=== PATIENT | male | born 1950 | race Caucasian/White ===

== ENCOUNTER 2025-02-10 14:36 | Inpatient (IN) | payer MEDICARE, SELFPAY ==
[2025-02-10] VITALS (9 sets, daily range): BP systolic 122–192; BP diastolic 50–97; BMI 15.8; BMI 15.1
--- NOTE | 2025-02-10 10:54 | ED.GENMED ---
History of Present Illness
General
Chief Complaint: Breathing Problem
Source: patient and spouse
Exam Limitations: none
Time Seen by Provider: 02/10/25 10:47
Nursing documentation reviewed up to this point in time: agreed with
History of Present Illness
History of Present Illness:
74-year-old male with no reported chronic medical issues (admittedly he says that he does not see a doctor), longtime smoker who presents to the emergency department with his for evaluation of multiple complaints chief among them worsening
shortness of breath. The patient reports that he has been having increasing shortness of breath�it sounds like he has some chronic dyspnea particular with exertion but that over the past week symptoms have significantly worsened. He has not had
any significant cough just mild chronic cough. Has not had any chest pain. He has chronic swelling in the legs he feels no worse than usual. He has not had fever or chills. He also complains of some recent urinary issues�he reports some
hematuria noted over the past few days as well as some mild dysuria and some bladder pressure. Denies any flank pain and, again, no fevers. Finally he reports recent increased fatigue/lethargy, notes that he has had very poor appetite
chronically but it seems to be getting worse. He has had increasing weight loss�patient says that this has been ongoing for 10+ years but it sounds like over the past few weeks to months weight loss has increased alongside his poor p.o. intake. He
is a longtime smoker but says that he has not smoked for 10 days and hopes to quit.
Review of Systems
Review of Systems
All Other Systems: ROS reviewed and negative except as documented in HPI and ROS
Constitutional: Reports fatigue; Denies fever or chills
EENT: Denies sore throat or runny nose
Respiratory: Reports cough and trouble breathing
Cardiac: Denies chest pain
ABD/GI: Reports abdominal pain (Bladder pressure); Denies nausea, vomiting or diarrhea
: Reports dysuria and bleeding; Denies frequency or flank pain
Musculoskeletal: Denies neck pain or back pain
Neurological: Denies dizzy or headache
Phy Exam
Physical Exam
Physical Exam:
General: Awake, alert, oriented x3; cachectic, mild respiratory distress
Head: Normocephalic, atraumatic
Eyes: Conjunctiva normal, EOMI
Throat: Airway intact, no JVD
Neck: Trachea midline, supple without meningismus
Lungs: Patient has tachypnea at rest with respiratory rate 22-24, scattered expiratory wheeze with diminished air movement throughout all lung becerril; pulse ox low normal 90% on room air
Heart: Tachycardia with regular rhythm, no murmurs, gallops, or rubs appreciated
Abd: Soft, non distended, nontender
Neuro: Grossly intact
Extremities: Patient has +1 pitting edema in the legs bilaterally; extremities are warm and well-perfused
Scores
Heart Failure Risk
Heart Failure Risk Score: Not Applicable
Heart Score for Chest Pain Patients
STEMI patient?: Not applicable
Withdrawal Assessment of Alcohol
Withdrawal Assessment Completed?: Not applicable
Course
Orders/Labs/Results
Orders:
Orders
02/10/25 10:48
Electrocardiogram (*1) Urgent
Reason for Study: Shortness of Breath
EKG- Treatment ONCE
CR Chest - 2 Views Urgent
Comment:
Reason For Exam: sob
02/10/25 10:57
Ipratropium/Albuterol Sulfate [Duoneb] 3 ml INH R NOW STA
02/10/25 11:10
COVID-19 Antigen Urgent
Source: Nasal Swab
Complete Blood Count/With Diff Urgent
Comprehensive Metabolic Panel Urgent
NT-proBNP Urgent
PTT Urgent
Prothrombin Time Urgent
Troponin I Urgent
Influenza A+B Rapid Molecular Urgent
GAMAL Source: Nasal Swab
Specimen Description:
02/10/25 11:29
Urinalysis Reflex To Culture Urgent
Date Specimen was Collected: 02/10/25
Time Specimen was Collected: 10:50
Urine Microscopic Reflex Cult Urgent
Urine Culture Urgent
GAMAL Source: U
Specimen Description:
Date Specimen was Collected: 02/10/25
Time Specimen was Collected: 10:50
02/10/25 12:07
CT Pe/abd/pel W Urgent
Comment:
Reason For Exam: shortness of breath, tachypnea; abd p + urine sxs
02/10/25 12:15
0.9% Sodium Chloride 1000 ml [Nss] 1,000 ml IV BOLUS
02/10/25 13:04
Bladder Scan- Treatment ONCE
02/10/25 13:24
MethylPREDNISolone PF [Solu-Medrol Pf] 125 mg IV NOW STA
02/10/25 13:35
Iniguez Placement- Treatment ONCE
Reason for insertion: Acute Retention
Azithromycin 500 mg/250 ml [Zithromax Infusion] 500 mg in 250 ml IV NOW
CefTRIAXone [Rocephin] 1,000 mg IV NOW STA
02/10/25 14:00
UROLOGY CONSULT Urgent
Consulting Provider: Jose Angel Gray
Was physician already notified: Yes
Abnormal Lab Results
02/10/25 02/10/25
11:10 11:29
WBC 13.5 H 10^3/uL
(4.8-10.8)
RBC 4.69 L 10^6/uL
(4.70-6.10)
MCH 31.3 H pg
(27.0-31.0)
MPV 10.5 H fL
(7.4-10.4)
Absolute Neuts (auto) 11.9 H 10^3/uL
(1.4-6.5)
Absolute Lymphs (auto) 0.4 L 10^3/uL
(1.2-3.4)
Absolute Monos (auto) 1.1 H 10^3/uL
(0.1-0.6)
Neutrophils % 88.5 H %
(42.2-75.2)
Lymphocytes % 3.0 L %
(20.5-51.1)
APTT 36.7 H Sec
(23.4-35.0)
BUN 58 H mg/dl
(9-20)
Glucose 143 H mg/dl
(70-99)
Urine Ketones 1+ A
(Negative)
Ur Occult Blood Reflex 4+ A
(Negative)
Leukocyte Esterase Rfl 3+ A
(Negative)
Urine RBC >100 A /HPF
(0-2)
Urine Bacteria (Reflex) Many A
(Negative)
Urine Albumin (Reflex) 3+ A
(Neg - Trace)
02/10/25 11:10
02/10/25 11:10
Vital Signs
Initial and Last Documented VS:
Initial Vital Signs
Temp Pulse Resp BP Pulse Ox
36.9 C 73 20 174/76 90
02/10/25 10:19 02/10/25 10:19 02/10/25 10:19 02/10/25 10:19 02/10/25 10:19
Last Documented Vital Signs
Temp Pulse Resp BP Pulse Ox
36.9 C 93 18 162/91 96
02/10/25 10:19 02/10/25 13:30 02/10/25 13:30 02/10/25 13:29 02/10/25 13:30
MDM/Problems Addressed
Differential Diagnosis Includes:
Dyspnea: COPD/bronchitis, pneumonia, pneumothorax, pulmonary embolism, congestive heart failure/pulmonary edema, ACS, anemia
Urinary symptoms: UTI, bladder cancer, kidney stone
Fatigue/weight loss/anorexia: Wide differential includes but not limited to�COPD, anemia, renal dysfunction/electrolyte derangement, infection (UTI/pneumonia), etc
MDM/Problems Addressed:
74-year-old male with no known chronic medical issues but heavy smoking history who has not not really had outpatient medical care presents to the ER with his for multiple complaints chief among them increasing shortness of breath. He is
hypertensive and tachypneic with low normal pulse ox here and tachycardia during my assessment. Physical exam is as above. Plan to place an IV send labs including CBC and a CMP, proBNP, troponin. Check urinalysis. Will check EKG and a chest
x-ray. Will treat with a DuoNeb with long smoking history and small amount of wheezing noted on exam. Will monitor very closely reassess after the above.
Labs reviewed: CBC shows leukocytosis to 13.5; no thrombocytopenia. Chemistry shows elevated BUN, acceptable creatinine, random glucose 143. LFTs unremarkable. Troponin negative x 1, proBNP marginal. His urinalysis is positive for blood and
leukocyte esterase but no nitrites, microscopic analysis pending. His COVID and flu swabs were negative. Chest x-ray shows hyperinflation of the lungs consistent with likely COPD but no pneumonia or pneumothorax. His EKG showed a sinus rhythm.
He remains tachypneic, he did have some wheezing but minimal. He has low normal pulse ox. Will check CT chest to rule out PE; given his hematuria and abdominal pain, weight loss we will also check abdomen/pelvis CT. Reassess after the above.
CT reviewed: No pulmonary embolism but severe emphysematous changes. Patient also has bilateral right greater than left pneumonia. He has CAD noted on CT chest. CT abdomen shows severely distended bladder with multiple bladder stones as well as
irregular and enlarged prostate concerning for adenocarcinoma. He does have large postvoid residual on bladder scan at bedside will place Iniguez catheter for acute urinary retention secondary to above. Will plan to treat with antibiotics as well as
steroids�suspect pneumonia with element of COPD flare. Will admit for continued management of these multiple new and acute medical issues. Discussed case with hospitalist for admission.
Iniguez catheter placed, patient having gross hematuria�initially quite dense but no significant clots, urine starting to lighten up. Will continue to monitor and may need CBI if it does not continue to improve. Discussed case with urology for
consultation.
Chronic conditions affecting care:
Smoking history
Acute Exacerbation and/or Progression of Chronic Illness:
Acute COPD exacerbation managed with steroids and nebs
Acute pneumonia managed with antibiotics
Acute urinary retention secondary to suspected prostate adenocarcinoma treated with Iniguez catheter
*Radiology
Radiology exam reviewed: preliminary read by ED provider and radiology read reviewed
*Pulse Oximetry
SaO2: 90
Patient hypoxic: no (90%)
*EKG
Interpreted by ED Provider?: Yes
Heart Rate: 74
Rate: normal
Rhythm: sinus and PVC's
[place]: normal axis
Interval: normal interval
QRS Pattern: normal QRS
Ischemia: no ischemia
*Critical Care Note
Total Time (30-74mins, 75-104mins- exclusive of procedures): Not Applicable
Data Reviewed
Source: patient, spouse and family
Patient Management
Social determinants of health affecting care: Poor outpatient follow-up
Discussion with other providers: Hospitalist (Discussed with hospitalist) and [facility] Bailiff (Discussed with urology)
Escalation/DeEscalation of care consider admission/obs:
Admission indicated
ED Attending Note
-
Portions of this chart may have been created with voice recognition software.� Occasional wrong word or��sound alike� substitutions may have occurred due to the inherent limitations of voice recognition software.
Discharge Plan
Departure
Patient Disposition: Admit
Date of Disposition: 02/10/25
Time of Disposition: 14:00
Admit to doctor: Martita
Presentation/result/management discussed w/ accepting MD/DO: Hospitalist
Discharge Problem:
Acute urinary retention, Prostate cancer, Pneumonia, COPD exacerbation
Referrals:
NONE,* [Family Provider, Internal Medicine]
Interventions
Interventions:
*Risk Screen - Suicide Last Done: 02/10/25 10:24
*General Assessment Last Done: 02/10/25 10:24
*Neglect/Abuse Screening Last Done: 02/10/25 11:15
*ED- Fall Risk Assessment Last Done: 02/10/25 11:15
*ED COVID-19 Vaccine History Last Done: 02/10/25 11:15
ED- Cardiac Assessment Last Done: 02/10/25 11:15
ED- Pulmonary Assessment Last Done: 02/10/25 11:16
Discharge Date and Time
Print Language: WALLISIAN
[2025-02-10] MEDS: DUONEB 3 ML INH ×3 (11:13→19:53)
[2025-02-10 11:24] LABS: Hematocrit 42.9 % (39.0-52.0); Hemoglobin 14.7 g/dL (13.0-18.0); Mean Corp Hgb Conc. 34.3 g/dL (33.0-37.0); Mean Corpuscular Volume 91.5 fL (80.0-94.0); Nucleated Red Blood Cells % 0 % (-); Platelet Count 266 10^3/uL (130-400); Red Cell Dist. Width 12.9 % (11.5-14.5)
[2025-02-10 11:36] LABS: ALT (SGPT) 21 U/L (0-50); AST (SGOT) 31 U/L (17-59); Albumin 4.4 g/dl (3.5-5.0); Alkaline Phosphatase 99 U/L (38-126); Blood Urea Nitrogen 58 mg/dl (9-20); Calcium 9.9 mg/dl (8.4-10.2); Carbon Dioxide 30 mmol/L (22-30); Chloride 98 mmol/L (98-107); Glucose 143 mg/dl (70-99); Potassium 4.7 mmol/L (3.5-5.1); Sodium 138 mmol/L (135-145); Total Protein 7.5 g/dl (6.3-8.2); eGFR > 60.00
[2025-02-10 11:39] LABS: APTT 36.7 Sec (23.4-35.0); INR 1.04; PT 13.9 Sec (11.4-14.6)
[2025-02-10 11:47] LABS: Troponin I 0.017 ng/ml
[2025-02-10 11:54] LABS: COVID-19 Antigen Negative (Negative)
[2025-02-10 12:11] LABS: Urine Character Cloudy (Clear)
[2025-02-10] MEDS: NSS 1000 IV (12:18)
[2025-02-10 12:33] LABS: Urine Red Blood Cell >100 /HPF (0-2); Urine Squamous Cell 0-2 /LPF (Few)
[2025-02-10] MEDS: ROCEPHIN 1000 MG IV (14:13)
[2025-02-10] MEDS: SOLU-MEDROL PF 125 MG IV (14:13)
[2025-02-10] MEDS: ZITHROMAX INFUSION 250 IV (14:13)
--- NOTE | 2025-02-10 14:20 | HPS.HSE ---
Family Physician
-
Family Physician: * NONE
Chief Complaint
-
shortness of breath
History of Present Illness
74-year-old male without reported medical issues, long-term smoker presenting for multiple complaints including shortness of breath. He has chronic shortness of breath with exertion but over the past week symptoms have gotten significantly worse.
Not much cough. Denies chest pain. He has chronic swelling in the legs which is not worse than usual for which he uses compression stocking. Denies fevers or chills.
He also complains of blood in the urine over the past few days and some mild pain with urination and bladder pressure. Denies any flank pain or fever. He has had increased fatigue and lethargy. He has had very poor appetite for a long time which
is getting worse. He has been losing weight ongoing for 10 years but over the past few weeks to months this has worsened.
His grandfather had prostate cancer
He has not smoked in 10 days. He smokes 8 to 10 cigarettes a day. Denies alcohol use.
Medical History
Past Medical History
Past Medical History: Reports None
Past Surgical History: Reports None
Social History
Tobacco: Smoker
Alcohol: None
Drug: None
Family History
Family History: Not pertinent
Allergies / Home Medications
Allergies reflects when Allergies were last updated in [facility].
Home Medications with original date entered in [facility]
Allergy/Medication List:
Allergies
Allergy/AdvReac Type Severity Reaction Status Date / Time
No Known Allergies Allergy Unverified 02/10/25 10:22
Review of Systems
-
History Source: Patient
A 12 point ROS was completed and negative except as noted: Yes
Constitutional: Reports No Symptoms
EENT: Reports No Symptoms
Respiratory: Reports See HPI
Cardiac: Reports No Symptoms
Abdomen/GI: Reports No Symptoms
: Reports See HPI
Musculoskeletal: Reports No Symptoms
Skin: Reports No Symptoms
Neurological: Reports No Symptoms
Endocrine: Reports No Symptoms
Hematologic/Lymphatic: Reports No Symptoms
Psych: Reports No Symptoms
Physical Exam
Vital Signs
Vital Signs
Temp Pulse Resp BP Pulse Ox
98.4 F 93 18 162/91 96
02/10/25 10:19 02/10/25 13:30 02/10/25 13:30 02/10/25 13:29 02/10/25 13:30
Physical Exam
General: Well Developed, Well Nourished and No Apparent Distress
HEENT: NormoCephalic, Moist mucous membranes and Atraumatic
Respiratory: Clear
Cardiac: S1/S2 and Regular Rhythm; No Murmur or Rub
GI: Soft, Non Tender, Non Distended and Normal Bowel Sounds; No Organomegaly
Rectal: Deferred by Provider
Musculoskeletal: No Clubbing, No Cyanosis and No Edema
Skin: No Rash
Neuro: Nonfocal/grossly intact
Laboratory Results
-
02/10/25 11:10
02/10/25 11:10
Laboratory Results
PT 13.9 Sec (11.4-14.6) 02/10/25 11:10
INR 1.04 02/10/25 11:10
APTT 36.7 Sec (23.4-35.0) H 02/10/25 11:10
Total Bilirubin 1.1 mg/dl (0.2-1.3) 02/10/25 11:10
AST 31 U/L (17-59) 02/10/25 11:10
ALT 21 U/L (0-50) 02/10/25 11:10
Alkaline Phosphatase 99 U/L (38-126) 02/10/25 11:10
Troponin I 0.017 ng/ml 02/10/25 11:10
Data Reviewed
-
Lab Data: Labs Reviewed by me
Old Records: Reviewed
Impression/Plan
-
IMPRESSION:
PLAN:
# Acute COPD exacerbation
- Chest x-ray shows severe bilateral lung hyperinflation
- DuoNebs every 6 hours
- Dexamethasone 4 mg every 12
# Mild right lower lobe pneumonia
-Leukocytosis
- Chest x-ray shows mild to moderate asymmetric opacity in the posterior basilar right lower lobe which is likely mild right lobe pneumonia
- Ceftriaxone/azithromycin
# Hematuria secondary to possible prostate malignancy
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
-Urinalysis not particularly suggestive of infection, urine culture
- CT abdomen pelvis shows severely distended urinary bladder, marked trabeculation of the urinary bladder wall suggesting chronic outlet obstruction, many calculi in the urinary bladder lumen, 2.7 cm irregular shaped hyperenhancement in the prostate
gland suggesting prostate adenocarcinoma obstructing the urinary bladder, moderate chronic bilateral hydroureteronephrosis,
- Iniguez catheter placed
- Urology consulted
# Smoker
- Nicotine patch
Full code
DVT prophylaxis�SCDs
Regular diet
--- NOTE | 2025-02-10 14:58 | CM ---
CM reviewed chart and met with pt bedside in ED. Pt lives with his in [facility], [address], has full bath and bedroom on first floor.
Independent in ADLs, personal care and ambulation at baseline. No DME.
Does not have prescription coverage.
No hx of VN or SNF
Does not have PCP
Pharmacy: [facility]
CM will continue to follow for any discharge planning needs.
[2025-02-10] MEDS: DECADRON 4 MG IV (23:08)
[2025-02-11 06:57] VITALS: BP 144/88
[2025-02-11] MEDS: DUONEB 3 ML INH ×4 (07:20→19:45)
[2025-02-11 07:57] LABS: Hematocrit 35.0 % (39.0-52.0); Hemoglobin 11.8 g/dL (13.0-18.0); Mean Corp Hgb Conc. 33.7 g/dL (33.0-37.0); Mean Corpuscular Volume 91.9 fL (80.0-94.0); Nucleated Red Blood Cells % 0 % (-); Platelet Count 246 10^3/uL (130-400); Red Cell Dist. Width 12.8 % (11.5-14.5)
--- NOTE | 2025-02-11 08:38 | W.PN.HOSP.TC ---
Addendum entered and electronically signed by Tess Craig MD 02/11/25 11:22:
Addendum
Add blood culture. Add Legionella urine antigen
End
Original Note:
Today's Communication/Plan
-
.
Assessment / Plan
Assessment / Plan
Physical Exam
General: No Apparent Distress. Cachexia noted
HEENT: Normocephalic, Moist mucous membranes and Atraumatic
Respiratory: very limited, no wheezes
Cardiac: S1/S2
GI: Soft, Non Tender, Non Distended and Normal Bowel Sounds.
Rectal: no bleeding
Musculoskeletal: No Clubbing, No Cyanosis and No Edema
Skin: No Rash
Neuro: Nonfocal/grossly intact
Psych: calm
A/P:
# Acute COPD exacerbation acute hypoxic respiratory failure with distress, requiring oxygen supplementation
CT showed severe bilateral upper lobe centrilobular emphysema/moderate right lower lobe pneumonia/mild left lower lobe pneumonia
- Chest x-ray shows severe bilateral lung hyperinflation
- DuoNeb every 6 hours
- Dexamethasone 4 mg every 12
Consult pulmonary. Pt did not know his pulmonary doctor, doubt he was following.
# Mild right lower lobe pneumonia
He denies shortness of breath or fever but seems poor historian
-Leukocytosis, noted and coming down
-Afebrile
- Ceftriaxone/azithromycin
# Hematuria secondary to possible prostate malignancy
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
-Urinalysis not particularly suggestive of infection but urine culture came back negative . Pt already on Abx for lung disease
- CT abdomen pelvis shows severely distended urinary bladder, marked trabeculation of the urinary bladder wall suggesting chronic outlet obstruction, many calculi in the urinary bladder lumen, 2.7 cm irregular shaped hyperenhancement in the prostate
gland suggesting prostate adenocarcinoma obstructing the urinary bladder, moderate chronic bilateral hydroureteronephrosis,
- Iniguez catheter placed
- Urology consulted
# Tobacco use/smoking
- Nicotine patch
# Severe protein caloric malnutrition. BMI 15. Suspect secondary to ongoing COPD
Significant muscle wasting
# Suspect untreated primary hypertension. Blood pressure seems to fluctuate between high and normal. Will start the patient on amlodipine and monitor
Full code
DVT prophylaxis�SCDs
Regular diet
Total time spent to see the patient, examine the patient, review data and lab result, discuss treatment plan with patient, nursing staff around 55 minutes
Anticipated Discharge: > 48 hours
Subjective/Interval History
-
Date of Service: February 11, 2025
No chest pain
No sob
Objective Data
-
Labs:
Laboratory Results
02/11/25
05:56
WBC 11.4 H
Hgb 11.8 L
Hct 35.0 L
Plt Count 246
Sodium Pending
Potassium Pending
Chloride Pending
Carbon Dioxide Pending
BUN Pending
Creatinine Pending
Glucose Pending
Calcium Pending
Total Bilirubin Pending
AST Pending
ALT Pending
Alkaline Phosphatase Pending
Vital Signs:
Vital Signs
Temp Pulse Resp BP Pulse Ox
98.5 F 70 14 122/50 92
02/10/25 23:08 02/11/25 07:22 02/11/25 07:22 02/10/25 23:08 02/11/25 07:22
I&O
02/10/25 02/11/25 02/12/25
06:59 06:59 06:59
Intake Total 660 / 660
Output Total 2574 / 257
Balance -1914 / -1914
[2025-02-11 08:57] LABS: ALT (SGPT) 23 U/L (0-50); AST (SGOT) 33 U/L (17-59); Albumin 3.4 g/dl (3.5-5.0); Alkaline Phosphatase 77 U/L (38-126); Blood Urea Nitrogen 44 mg/dl (9-20); Calcium 9.2 mg/dl (8.4-10.2); Carbon Dioxide 31 mmol/L (22-30); Chloride 103 mmol/L (98-107); Estimated Creatinine Clearance 68 ml/min; Glucose 127 mg/dl (70-99); Potassium 4.4 mmol/L (3.5-5.1); Sodium 139 mmol/L (135-145); Total Protein 5.9 g/dl (6.3-8.2); eGFR > 60.00
--- NOTE | 2025-02-11 10:30 | CONS.URO ---
Consultation
-
Date/Time Consultation Performed: 02/11/2025 1111
Requesting Provider: Kiara
Performing Provider: Isaac
Reason for Consultation: Bladder stones
Medical History
History of Present Illness
Admitted via ED for SOB.
Admission note, excerpt: 'He also complains of blood in the urine over the past few days and some mild pain with urination and bladder pressure. Denies any flank pain or fever. He has had increased fatigue and lethargy. He has had very poor
appetite for a long time which is getting worse. He has been losing weight ongoing for 10 years but over the past few weeks to months this has worsened.'
Allergies/Home Medications
Allergies
Allergy/AdvReac Type Severity Reaction Status Date / Time
No Known Allergies Allergy Unverified 02/10/25 10:22
Home Medications
�Medication �Instructions �Recorded �Confirmed �Type
multivitamin with minerals-folic 2 tab PO DAILY Supplement 02/10/25 02/10/25 History
acid 200 mcg chewable tablet
(Multivitamin Gummies)
Physical Exam
Vital Signs
Vital Signs
Temp Pulse Resp BP Pulse Ox
98.4 F 70 14 144/88 92
02/11/25 06:57 02/11/25 07:22 02/11/25 07:22 02/11/25 06:57 02/11/25 07:22
Lab / Testing Results
Laboratory Results
02/11/25 05:56
02/11/25 05:56
Physical Exam
thin male currently receiving respiratory tx
General: No Apparent Distress
Rectal: Other (indurated prostate)
Genito-urinary: Iniguez Catheter (with jimena urine and debris and flecks of blood)
Skin: Warm
Neuro: Awake
Psych: Calm
Assessment / Plan
-
Suspected Prostate Cancer
Chronic Bladder Outlet Obstruction causing Bladder Stones, Hematuria, Bilateral Hydroureteronephrosis
Rec: Iniguez
PSA
no indication for urgent surgical intervention
Data Reviewed
-
CT Scan: Image personally visualized and interpreted (1. SEVERE BILATERAL UPPER LOBE CENTRILOBULAR EMPHYSEMA. 2. MODERATE RIGHT LOWER LOBE PNEUMONIA. 3. Mild left lower lobe pneumonia. 4. Severe calcific atherosclerotic plaque in the
coronary arteries. ABDOMEN and PELVIS: 1. SEVERELY DISTENDED URINARY BLADDER with marked trabeculation of th)
--- NOTE | 2025-02-11 11:16 | CON.PUL ---
Consultation
Consultation Request
Date/Time Consultation Requested: 02/11/2025-8 AM
Date/Time Consultation Performed: 02/11/2025-8:30 AM
Requesting Provider: Hospitalist
Performing Provider: Dr. Palomo
Reason for Consultation: Shortness of breath
Medical History
-
Chief Complaint: Shortness of breath
History of Present Illness:
74-year-old smoking male who denies significant past medical history, however, clearly has underlying advanced COPD radiographically presented with shortness of breath, anorexia, and unintentional weight loss-pulmonary consulted for shortness of
breath 02/11/2025. The patient states that he has some dyspnea on exertion that has been progressive. He has never seen a instructor painting. He is not on any inhalers. He never been told he has COPD or asthma. He denies any current chest pain, chest
congestion, hemoptysis, productive cough, wheezing, abdominal pain, leg swelling or focal weakness.
Past Medical History
Past Medical History: None (Cigarette smoker. Denies previous history of CAD, COPD, lung disease, renal, gastrointestinal or neurologic disease)
Social History
Tobacco: Smoker ([id number] quit 2 weeks ago)
Alcohol: None
Drug: None
Occupational Exposures: No known asbestos exposure
Environmental Exposures: No known tuberculosis exposure
Family History
Family History: Reviewed & Not Pertinent
Allergies / Home Medications
Allergies
Allergy/AdvReac Type Severity Reaction Status Date / Time
No Known Allergies Allergy Unverified 02/10/25 10:22
Home Medications
�Medication �Instructions �Recorded �Confirmed �Last Taken �Type
multivitamin with minerals-folic 2 tab PO DAILY Supplement 02/10/25 02/10/25 02/09/25 History
acid 200 mcg chewable tablet
(Multivitamin Gummies)
Review of Systems
-
Unable to Obtain full review of systems at this time due to: Other (Per HPI)
Vitals / Labs / Diagnostic Testing
Vital Signs
Temp Pulse Resp BP Pulse Ox
98.4 F 72 15 144/88 92
02/11/25 06:57 02/11/25 11:09 02/11/25 11:09 02/11/25 06:57 02/11/25 07:22
Lab Data
02/11/25 05:56
02/11/25 05:56
Laboratory Results
02/10/25
11:10
PT 13.9
INR 1.04
APTT 36.7 H
Microbiology
02/10/25 11:29 Urine Urine Culture - Final
02/10/25 11:10 Nasal Swab Influenza Types A & B (SEGUNDO) - Final
Negative for Influenza A & B, NAAT
Negative results must be combined with clinical observations
and patient history.
Nucleic Acid Amplification test (NAAT)performed on the
[employer] platform.
Diagnostic Testing:
Physical Exam
-
Exam:
Thin gentleman in no apparent distress
HEENT-atraumatic, normocephalic, temporal wasting
Neck-supple, no JVD, no bruit
Heart-regular rate and rhythm-no murmurs, rubs or gallops
Chest with diminished breath sounds, prolonged expiratory time, no wheezes or crackles
Back without tenderness
Abdomen-soft, nontender, nondistended, no hepatosplenomegaly
Extremities-no cyanosis, clubbing, edema and good peripheral pulses
Integument-intact, no rashes, lesions or ecchymosis
Neurology-alert and oriented, nonfocal motor and sensory exam
Assessment
-
74-year-old smoking male who denies significant past medical history, however, clearly has underlying advanced COPD radiographically presented with shortness of breath, anorexia, and unintentional weight loss-pulmonary consulted for shortness of
breath 02/11/2025.
COPD-suspect advanced with acute exacerbation
Community-acquired pneumonia
Hematuria
Chronic bladder outlet obstruction/chronic bilateral hydroureteronephrosis
Prostate gland 2.7 cm irregular shaped hyperenhancement suggestive of prostate cancer
Severe protein calorie malnutrition
Hypertension
Mild leukocytosis
Mild normocytic anemia-hemoglobin 11.8
Mild hyperglycemia
Conditions present prior to admission:
Cigarette smoker.
Denies previous history of CAD, COPD, lung disease, renal, gastrointestinal or neurologic disease
Plan
Patient undoubtedly has advanced COPD with shortness of breath that has been progressive now presenting with acute exacerbation in addition to multiple other medical issues
Supplemental oxygen as needed
Assess discharge supplemental oxygen needs
Steroids-Decadron 4 mg IV every 12 hours
Nebulizers-DuoNebs 4 times daily
Mucolytic's if needed
Aspiration precautions
Check spirometry
Check VBG
Check cultures
Empiric antibiotics-ceftriaxone and azithromycin-finite course
Follow radiographically
Urology evaluation for hematuria and chronic bladder outlet obstruction with suspected prostate cancer
Monitor hemoglobin
Transfuse if needed
Monitor blood sugar
Insulin supplementation as needed
Nutrition evaluation with severe protein calorie malnutrition
Smoking cessation counseling ongoing
Nicotine patch as needed
Outpatient pulmonary evaluation-PFTs, smoking cessation counseling, yearly low-dose lung cancer screening CT, etc.
Diagnostic data:
Chest x-ray 02/10/2025-severe bilateral lung hyperinflation, moderate asymmetrical opacifications likely related to right lower lobe pneumonia
CT chest/abdomen and pelvis 02/10/2025-no evidence for pulm embolism, very severe bilateral lung hyperinflation, mild bronchial wall thickening, endobronchial secretions, no bronchiectasis, severe centrilobular emphysema, airspace disease basilar
segment right lower lobe, severely distended urinary bladder suggesting chronic outlet obstruction, many calculi in the urinary bladder lumen, 2.7 cm irregular shaped hyperenhancement in the prostate gland suggesting prostate carcinoma, moderate
chronic bilateral hydro nephrosis
[2025-02-11] MEDS: DECADRON 4 MG IV ×2 (11:19→23:37)
[2025-02-11 12:04] LABS: PSA, Total - Diagnostic 0.53 ng/ml (0.0-4.0)
[2025-02-11] MEDS: ZITHROMAX INFUSION 250 IV (13:01)
[2025-02-11] MEDS: ROCEPHIN 1000 MG IV (13:02)
[2025-02-11] MEDS: STERILE WATER FOR INJECTION 10 ML IV (13:02)
[2025-02-11 13:03] LABS: Venous Blood Gas B.E. 8.7 mmol/L (-4 to +4); Venous Blood Gas O2 Sat % 85.5 %
[2025-02-11] MEDS: TYLENOL 1000 MG PO ×2 (14:40→20:57)
[2025-02-11 15:08] VITALS: BP 123/58
[2025-02-11 23:00] VITALS: BP 119/52
[2025-02-12 06:00] VITALS: BMI 15.6
[2025-02-12 07:25] VITALS: BP 127/58
[2025-02-12] MEDS: DUONEB 3 ML INH ×4 (07:46→19:15)
--- NOTE | 2025-02-12 08:15 | W.PN.URO.CBU ---
Today's Communication / Plan
-
discharge WITH VIDES
will return for Cystolitholapaxy and TURP -- anatomy, pathophysiology and surgical plan d/w pt in detail
Assessment / Plan
-
Chronic Bladder Outlet Obstruction causing Bladder Stones, Hematuria, Bilateral Hydroureteronephrosis
normal PSA eliminates concern for prostate cancer
Diagnosis
-
Date of Service: February 12, 2025
-
Patient Diagnosis:
Chronic Bladder Outlet Obstruction causing Bladder Stones, Hematuria, Bilateral Hydroureteronephrosis
normal PSA eliminates concern for prostate cancer
Subjective
-
'I feel great.'
Objective
-
Vital Signs
Temp Pulse Resp BP Pulse Ox
98 F 85 18 119/52 95
02/11/25 23:00 02/12/25 07:47 02/12/25 07:47 02/11/25 23:00 02/12/25 07:47
Intake and Output
02/11/25 02/12/25 02/13/25
06:59 06:59 06:59
Intake Total 660 / 660 740 / 740
Output Total 2575 / 2575 950 / 950
Balance -1915 / -191 -210 / -210
Intake:
Oral fluids 660 / 660 740 / 740
Output:
Urine, Vides 2575 / 2575 950 / 950
Physical Exam
-
General - well developed, well nourished, no acute distress
Abdomen - soft, non-tender, positive bowel sounds, no distention
Genitalia - Vides with pale pink urine
Care Review
Data Reviewed
Discussed with: Nursing
[2025-02-12 08:16] LABS: Hematocrit 33.5 % (39.0-52.0); Hemoglobin 11.5 g/dL (13.0-18.0); Mean Corp Hgb Conc. 34.3 g/dL (33.0-37.0); Mean Corpuscular Volume 92.3 fL (80.0-94.0); Platelet Count 279 10^3/uL (130-400); Red Cell Dist. Width 12.3 % (11.5-14.5)
[2025-02-12 08:45] LABS: Blood Urea Nitrogen 35 mg/dl (9-20); Calcium 9.5 mg/dl (8.4-10.2); Carbon Dioxide 32 mmol/L (22-30); Chloride 99 mmol/L (98-107); Estimated Creatinine Clearance 70 ml/min; Glucose 155 mg/dl (70-99); Potassium 4.5 mmol/L (3.5-5.1); Sodium 135 mmol/L (135-145); eGFR > 60.00
--- NOTE | 2025-02-12 12:52 | W.PN.HOSP.TC ---
Today's Communication/Plan
-
wean o2
IV steroids
pulm recs ?start weaning IV steroids
Cont abx
Assessment / Plan
Assessment / Plan
Physical Exam
General: No Apparent Distress. Cachexia noted, conversant
HEENT: Normocephalic, Moist mucous membranes and Atraumatic
Respiratory: very limited, no wheezes Not tachypneic. Able to speak in complete sentences., oxygen,
Cardiac: S1/S2
GI: Soft, Non Tender, Non Distended and Normal Bowel Sounds.
Rectal: no bleeding
Musculoskeletal: No Clubbing, No Cyanosis and No Edema
Skin: No Rash
Neuro: Nonfocal/grossly intact
Psych: calm
A/P:
# Acute COPD exacerbation
# Acute hypoxic respiratory failure with distress, requiring oxygen supplementation
CT showed severe bilateral upper lobe centrilobular emphysema/moderate right lower lobe pneumonia/mild left lower lobe pneumonia
- Chest x-ray shows severe bilateral lung hyperinflation
- DuoNeb every 6 hours
- Dexamethasone 4 mg every 12-start weaning ?
- Remains on 4L oxygen. Wean o2 as tolerated goal o2 sats >88%.
-Pulm following
# Mild right lower lobe pneumonia
-Leukocytosis on admisison
-Afebrile
-Ceftriaxone/azithromycin-complete finite course
# Hematuria secondary to possible prostate malignancy
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
-Urinalysis not particularly suggestive of infection but urine culture came back negative . Pt already on Abx for lung disease
- CT abdomen pelvis shows severely distended urinary bladder, marked trabeculation of the urinary bladder wall suggesting chronic outlet obstruction, many calculi in the urinary bladder lumen, 2.7 cm irregular shaped hyperenhancement in the prostate
gland suggesting prostate adenocarcinoma obstructing the urinary bladder, moderate chronic bilateral hydroureteronephrosis,
- Vieyra catheter placed. Urology recommends DC on vieyra. Patient refusing to go home on vieyra-defer to urology.
- PSA normal.
- Urology consulted-Plan for outpatient Cystolitholapaxy and TURP and also recommending finasteride 5mg
# Tobacco use/smoking
- Nicotine patch
# Severe protein caloric malnutrition. BMI 15. Suspect secondary to ongoing COPD
Significant muscle wasting
# Suspect untreated primary hypertension. Blood pressure seems to fluctuate between high and normal. Pt states doesnt takes meds at home for BP. Monitor for now /
Full code
DVT prophylaxis�lovenox started
Anticipated Discharge: 24 - 48 hours
Subjective/Interval History
-
Date of Service: February 12, 2025
About to undergo PFT testing
Remains on oxygenation
Objective Data
-
Labs:
Laboratory Results
02/12/25
07:54
WBC 13.5 H
Hgb 11.5 L
Hct 33.5 L
Plt Count 279
Sodium 135
Potassium 4.5
Chloride 99
Carbon Dioxide 32 H
BUN 35 H
Creatinine 0.7
Glucose 155 H
Calcium 9.5
Vital Signs:
Vital Signs
Temp Pulse Resp BP Pulse Ox
97.6 F 84 18 127/58 95
02/12/25 07:25 02/12/25 12:38 02/12/25 12:38 02/12/25 07:25 02/12/25 12:38
I&O
02/11/25 02/12/25 02/13/25
06:59 06:59 06:59
Intake Total 660 / 660 740 / 740
Output Total 2575 / 2575 950 / 950
Balance -1915 / -1915 -210 / -210
Data Reviewed
-
Total Time Spent with Patient (in minutes): 55
[2025-02-12] MEDS: DECADRON 4 MG IV (12:56)
[2025-02-12] MEDS: FLUSH (NSS) 2 FLUSH IV (12:56)
[2025-02-12] MEDS: STERILE WATER FOR INJECTION 10 ML IV (13:01)
[2025-02-12] MEDS: ROCEPHIN 1000 MG IV (13:01)
[2025-02-12] MEDS: ZITHROMAX INFUSION 250 IV (13:02)
[2025-02-12] MEDS: FLUSH (NSS) 1 FLUSH IV (13:02)
--- NOTE | 2025-02-12 13:06 | CM ---
Chart reviewed. Pt continues O2, cont to wean
Cont IV abx
IV steroids
Plan: Anticipate home, no needs
[2025-02-12 15:25] VITALS: BP 147/65
--- NOTE | 2025-02-12 15:49 | W.PN.PUL3 ---
Today's Communication / Plan
-
- Admit desonide nebulized twice a day, continue DuoNeb as scheduled
- Switch to p.o. prednisone
- Continue antibiotics
- Will need to discharge on LAMA/LABA/ICS, Trelegy 100 be a good option at discharge
- Out patient Pulmonary follow up
Assessment
-
74-year-old smoking male who denies significant past medical history, however, clearly has underlying advanced COPD radiographically presented with shortness of breath, anorexia, and unintentional weight loss-pulmonary consulted for shortness of
breath 02/11/2025.
Acute COPD exacerbation, baseline severe COPD
Community-acquired pneumonia
Hematuria
Chronic bladder outlet obstruction/chronic bilateral hydroureteronephrosis
Prostate gland 2.7 cm irregular shaped hyperenhancement suggestive of prostate cancer
Severe protein calorie malnutrition
Hypertension
Mild leukocytosis
Mild normocytic anemia-hemoglobin 11.8
Mild hyperglycemia
Conditions present prior to admission:
Cigarette smoker.
Denies previous history of CAD, COPD, lung disease, renal, gastrointestinal or neurologic disease
Plan
Patient undoubtedly has advanced COPD with shortness of breath that has been progressive now presenting with acute exacerbation in addition to multiple other medical issues
Supplemental oxygen as needed
Assess discharge supplemental oxygen needs
Continue DuoNeb scheduled 4 times a day, add budesonide twice a day
Discontinue IV dexamethasone, start prednisone p.o.
At discharge, will need triple therapy with LAMA/LABA/ICS, Trelegy 100 will be a good option
Spirometry suggestive of severe obstruction with possible restriction without bronchodilator response. Needs lung volume and diffusion capacity as outpatient
VBG suggestive of mild chronically compensated hypercapnia. Also noted to have elevated bicarb level on BMP consistent with some degree of chronic retention.
Needs outpatient follow-up with pulmonary clinic, will arrange.
Continue empiric antibiotic with ceftriaxone and azithromycin
With history of smoking, will need outpatient low-dose CT scan for lung cancer screening
Urology evaluation for hematuria and chronic bladder outlet obstruction with suspected prostate cancer
Monitor hemoglobin
Transfuse if needed
Monitor blood sugar
Insulin supplementation as needed
Nutrition evaluation with severe protein calorie malnutrition
Smoking cessation counseling ongoing
Nicotine patch as needed
Outpatient pulmonary evaluation-PFTs, smoking cessation counseling, yearly low-dose lung cancer screening CT, etc.
Diagnostic data:
Chest x-ray 02/10/2025-severe bilateral lung hyperinflation, moderate asymmetrical opacifications likely related to right lower lobe pneumonia
CT chest/abdomen and pelvis 02/10/2025-no evidence for pulm embolism, very severe bilateral lung hyperinflation, mild bronchial wall thickening, endobronchial secretions, no bronchiectasis, severe centrilobular emphysema, airspace disease basilar
segment right lower lobe, severely distended urinary bladder suggesting chronic outlet obstruction, many calculi in the urinary bladder lumen, 2.7 cm irregular shaped hyperenhancement in the prostate gland suggesting prostate carcinoma, moderate
chronic bilateral hydro nephrosis
Subjective Data
-
Date of Service:
Date of Service: February 12, 2025
Subjective:
Comfortably sitting in bed, overall reports feeling better.
Review of Systems
Genitourinary: Other (No new pulmonary symptoms reported.)
Objective Data
Data Reviewed
Vital Signs / I&O / Oxygen:
Vital Signs
Temp Pulse Resp BP Pulse Ox
97.6 F 87 18 147/65 95
02/12/25 15:25 02/12/25 15:33 02/12/25 15:33 02/12/25 15:25 02/12/25 15:33
Intake and Output
02/11/25 02/12/25 02/13/25
06:59 06:59 06:59
Intake Total 660 / 660 740 / 740
Output Total 2575 / 2575 950 / 950
Balance -1915 / -1915 -210 / -210
SaO2 95
Nasal Cannula flow liters per 3
minute
Physical Exam
General: Comfortable
HEENT: Normocephalic
Cardiovascular: S1-S2
Respiratory: Wheeze and Other (AP diameter increased, prolonged expiration, faint end expiratory wheezing)
GI: Soft and Non Distended
Neurology: Awake and Alert
Skin: Warm
Labs/Micro/Reports
Lab Data
02/12/25 07:54
02/12/25 07:54
Microbiology
02/11/25 11:33 Blood/Venous Blood Culture - Preliminary
No Growth in 24 hours- Final report to follow
02/11/25 18:11 Urine Legionella Urinary Antigen - Final
Negative for Legionella pneumophila Serogroup 1 antigen.
A negative result does not rule out the possiblity of
Legionella infection due to other serogroups or species of
Legionella. Clinical correlation is recommended.
02/10/25 11:29 Urine Urine Culture - Final
02/10/25 11:10 Nasal Swab Influenza Types A & B (SEGUNDO) - Final
Negative for Influenza A & B, NAAT
Negative results must be combined with clinical observations
and patient history.
Nucleic Acid Amplification test (NAAT)performed on the
[employer] platform.
[2025-02-12] MEDS: LOVENOX 40 MG SC (17:56)
[2025-02-12] MEDS: PULMICORT 0.5 MG INH (19:15)
[2025-02-12 23:00] VITALS: BP 134/61
[2025-02-13 06:00] VITALS: BMI 15.8
[2025-02-13] MEDS: PULMICORT 0.5 MG INH ×2 (07:21→19:38)
[2025-02-13] MEDS: DUONEB 3 ML INH ×4 (07:21→19:38)
[2025-02-13 07:40] VITALS: BP 147/63
[2025-02-13] MEDS: PROSCAR 5 MG PO (08:44)
[2025-02-13] MEDS: DELTASONE 40 MG PO (08:44)
[2025-02-13 10:14] VITALS: BP 133/57; PULSE 64; O2SAT 93
--- NOTE | 2025-02-13 12:22 | W.PN.HOSP.TC ---
Today's Communication/Plan
-
Continue with prednisone
Continue with bronchodilators and nebulizer
Wean O2 as tolerated
Pulm recs
Assessment / Plan
Assessment / Plan
Physical Exam
General: No Apparent Distress. Cachexia noted, conversant
HEENT: Normocephalic, Moist mucous membranes and Atraumatic
Respiratory: Mild expiratory wheezing, able to speak complete sentences, not tachypneic, on oxygen
Cardiac: S1/S2
GI: Soft, Non Tender, Non Distended and Normal Bowel Sounds.
Rectal: no bleeding
Musculoskeletal: No Clubbing, No Cyanosis and No Edema
Skin: No Rash
Neuro: Nonfocal/grossly intact
Psych: calm
A/P:
# Acute COPD exacerbation
# Acute hypoxic respiratory failure with distress, requiring oxygen supplementation
# Chronic dyspnea at home
CT showed severe bilateral upper lobe centrilobular emphysema/moderate right lower lobe pneumonia/mild left lower lobe pneumonia
- Chest x-ray shows severe bilateral lung hyperinflation
- DuoNeb every 6 hours. Budenoside BID.
- Status post IV steroids. Now on prednisone 40 mg.
- Remains on 2L oxygen. Wean o2 as tolerated goal o2 sats >88%. Will require home O2 eval prior to discharge.
-Pulm following
# Mild right lower lobe pneumonia
-Leukocytosis on admisison
-Afebrile
-Ceftriaxone/azithromycin-complete finite course
# Hematuria secondary to possible prostate malignancy
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
-Urinalysis not particularly suggestive of infection but urine culture came back negative . Pt already on Abx for lung disease
- CT abdomen pelvis shows severely distended urinary bladder, marked trabeculation of the urinary bladder wall suggesting chronic outlet obstruction, many calculi in the urinary bladder lumen, 2.7 cm irregular shaped hyperenhancement in the prostate
gland suggesting prostate adenocarcinoma obstructing the urinary bladder, moderate chronic bilateral hydroureteronephrosis,
- Vieyra catheter placed. Urology recommends DC on vieyra. Patient refusing to go home on vieyra-defer to urology.
- PSA normal.
- Urology consulted-Plan for outpatient Cystolitholapaxy and TURP and also recommending finasteride 5mg
# Tobacco use/smoking
- Nicotine patch
# Severe protein caloric malnutrition. BMI 15. Suspect secondary to ongoing COPD
Significant muscle wasting
# Suspect untreated primary hypertension. Blood pressure seems to fluctuate between high and normal. Pt states doesnt takes meds at home for BP. Monitor for now
Full code
DVT prophylaxis�lovenox started
PT recs SNF. CM aware.
Anticipated Discharge: 24 - 48 hours
Subjective/Interval History
-
Date of Service: February 13, 2025
Remains with oxygenation
States of feeling short of breath with overt activity
Objective Data
-
Vital Signs:
Vital Signs
Temp Pulse Resp BP Pulse Ox
97.7 F 83 16 147/63 95
02/13/25 07:40 02/13/25 11:22 02/13/25 11:22 02/13/25 07:40 02/13/25 11:22
I&O
02/12/25 02/13/25 02/14/25
06:59 06:59 06:59
Intake Total 740 / 740 1210 / 1210
Output Total 950 / 950 1350 / 1350
Balance -210 / -210 -140 / -140
--- NOTE | 2025-02-13 13:49 | W.PN.PUL3 ---
Today's Communication / Plan
-
- Switch to p.o. azithromycin. Total 5 days of antibiotic should suffice
- Continue DuoNeb, Pulmicort and prednisone
- Switch to Trelegy 100 daily at discharge along with tapering dose of prednisone
- Outpatient pulmonary follow-up.
- Discharge planning
- Assess for home oxygen need prior to discharge
Assessment
-
74-year-old smoking male who denies significant past medical history, however, clearly has underlying advanced COPD radiographically presented with shortness of breath, anorexia, and unintentional weight loss-pulmonary consulted for shortness of
breath 02/11/2025.
Acute COPD exacerbation, baseline severe COPD
Community-acquired pneumonia
Hematuria
Chronic bladder outlet obstruction/chronic bilateral hydroureteronephrosis
Prostate gland 2.7 cm irregular shaped hyperenhancement suggestive of prostate cancer
Severe protein calorie malnutrition
Hypertension
Mild leukocytosis
Mild normocytic anemia-hemoglobin 11.8
Mild hyperglycemia
Conditions present prior to admission:
Cigarette smoker.
Denies previous history of CAD, COPD, lung disease, renal, gastrointestinal or neurologic disease
Plan
Patient undoubtedly has advanced COPD with shortness of breath that has been progressive now presenting with acute exacerbation in addition to multiple other medical issues
Supplemental oxygen as needed
Assess discharge supplemental oxygen needs
Continue DuoNeb scheduled 4 times a day, add budesonide twice a day
Discontinued IV dexamethasone, continue prednisone p.o.
At discharge, will need triple therapy with LAMA/LABA/ICS, Trelegy 100 will be a good option
Spirometry suggestive of severe obstruction with possible restriction without bronchodilator response. Needs lung volume and diffusion capacity as outpatient
VBG suggestive of mild chronically compensated hypercapnia. Also noted to have elevated bicarb level on BMP consistent with some degree of chronic retention.
Needs outpatient follow-up with pulmonary clinic, will arrange.
Continue empiric antibiotic with ceftriaxone and azithromycin
With history of smoking, will need outpatient low-dose CT scan for lung cancer screening
Urology evaluation for hematuria and chronic bladder outlet obstruction with suspected prostate cancer
Monitor hemoglobin
Transfuse if needed
Monitor blood sugar
Insulin supplementation as needed
Nutrition evaluation with severe protein calorie malnutrition
Smoking cessation counseling ongoing
Nicotine patch as needed
Outpatient pulmonary evaluation-PFTs, smoking cessation counseling, yearly low-dose lung cancer screening CT, etc.
Diagnostic data:
Chest x-ray 02/10/2025-severe bilateral lung hyperinflation, moderate asymmetrical opacifications likely related to right lower lobe pneumonia
CT chest/abdomen and pelvis 02/10/2025-no evidence for pulm embolism, very severe bilateral lung hyperinflation, mild bronchial wall thickening, endobronchial secretions, no bronchiectasis, severe centrilobular emphysema, airspace disease basilar
segment right lower lobe, severely distended urinary bladder suggesting chronic outlet obstruction, many calculi in the urinary bladder lumen, 2.7 cm irregular shaped hyperenhancement in the prostate gland suggesting prostate carcinoma, moderate
chronic bilateral hydro nephrosis
Subjective Data
-
Date of Service:
Date of Service: February 13, 2025
Subjective:
Patient comfortably sitting in bed in no acute distress. Reports gradual improvement in dyspnea.
Review of Systems
Genitourinary: Other (All 14 systems reviewed and negative except as stated above in the history of present illness.)
Objective Data
Data Reviewed
Vital Signs / I&O / Oxygen:
Vital Signs
Temp Pulse Resp BP Pulse Ox
97.7 F 83 16 147/63 95
02/13/25 07:40 02/13/25 11:22 02/13/25 11:22 02/13/25 07:40 02/13/25 11:22
Intake and Output
02/12/25 02/13/25 02/14/25
06:59 06:59 06:59
Intake Total 740 / 740 1210 / 1210
Output Total 950 / 950 1350 / 1350
Balance -210 / -210 -140 / -140
SaO2 95
Nasal Cannula flow liters per 2
minute
Physical Exam
General: Comfortable
HEENT: Normocephalic
Cardiovascular: S1-S2
Respiratory: Wheeze (Resolved), Non-Labored Respirations and Other (AP diameter increased, prolonged expiration)
GI: Soft and Non Distended
Neurology: Awake and Alert
Skin: Warm
Labs/Micro/Reports
Lab Data
02/12/25 07:54
02/12/25 07:54
Microbiology
02/11/25 11:33 Blood/Venous Blood Culture - Preliminary
No Growth in 48 hours- Final report to follow
02/11/25 18:11 Urine Legionella Urinary Antigen - Final
Negative for Legionella pneumophila Serogroup 1 antigen.
A negative result does not rule out the possiblity of
Legionella infection due to other serogroups or species of
Legionella. Clinical correlation is recommended.
02/10/25 11:29 Urine Urine Culture - Final
02/10/25 11:10 Nasal Swab Influenza Types A & B (SEGUNDO) - Final
Negative for Influenza A & B, NAAT
Negative results must be combined with clinical observations
and patient history.
Nucleic Acid Amplification test (NAAT)performed on the
[employer] platform.
--- NOTE | 2025-02-13 13:59 | CM ---
Addendum entered by Genaro Aguilar 02/13/25 15:13:
CM followed up w/ patient regarding SNF options, [facility] identified [facility]. Patient understands more options will need to be explored if either facilities are OON or there's no bed availability
Referrals sent in [facility]
Original Note:
Chart reviewed. Therapy rec SNF at d/c
CM discussed w/ patient bedside regarding SNF. Patient stated he is not familiar w/ SNF, has never been to one in the past. Patient asked about home therapy, CM shared that is usually 2-3 times a week and if patient has support at home, that may be
an option if he does not prefer SNF. Patient stated he doesn't want to burden his and will explore SNF. Patient agreeable to SNF list, CM provided list from Medicare.gov.
Patient will need insurance auth once accepting facility is located
Plan: SNF
[2025-02-13 15:35] VITALS: BP 155/72
[2025-02-13] MEDS: ROCEPHIN 1000 MG IV (15:39)
[2025-02-13] MEDS: STERILE WATER FOR INJECTION 10 ML IV (15:39)
[2025-02-13] MEDS: FLUSH (NSS) 2 FLUSH IV (15:39)
[2025-02-13] MEDS: LOVENOX 40 MG SC (18:38)
[2025-02-13 23:41] VITALS: BP 153/83
[2025-02-14 06:00] VITALS: BMI 15.7
[2025-02-14] MEDS: DUONEB 3 ML INH ×4 (07:30→19:28)
[2025-02-14] MEDS: PULMICORT 0.5 MG INH ×2 (07:30→19:28)
[2025-02-14 07:40] VITALS: BP 151/77
[2025-02-14 08:42] LABS: Hematocrit 37.1 % (39.0-52.0); Hemoglobin 12.4 g/dL (13.0-18.0); Mean Corp Hgb Conc. 33.4 g/dL (33.0-37.0); Mean Corpuscular Volume 89.8 fL (80.0-94.0); Nucleated Red Blood Cells % 0 % (-); Platelet Count 317 10^3/uL (130-400); Red Cell Dist. Width 12.2 % (11.5-14.5)
[2025-02-14] MEDS: DELTASONE 40 MG PO (09:03)
[2025-02-14] MEDS: ZITHROMAX 250 MG PO (09:03)
[2025-02-14] MEDS: PROSCAR 5 MG PO (09:03)
[2025-02-14 09:33] LABS: Blood Urea Nitrogen 19 mg/dl (9-20); Calcium 9.2 mg/dl (8.4-10.2); Carbon Dioxide 36 mmol/L (22-30); Chloride 96 mmol/L (98-107); Estimated Creatinine Clearance 83 ml/min; Glucose 76 mg/dl (70-99); Potassium 4.6 mmol/L (3.5-5.1); Sodium 133 mmol/L (135-145); eGFR > 60.00
--- NOTE | 2025-02-14 11:30 | W.PN.PUL3 ---
Today's Communication / Plan
-
- Total 5 days of antibiotic should suffice
- Continue DuoNeb, Pulmicort and prednisone
- Switch to Trelegy 100 daily at discharge along with tapering dose of prednisone
- Outpatient pulmonary follow-up.
- Discharge planning
- Assess for home oxygen need prior to discharge
- Pulmonary team will sign off, please call as needed.
Assessment
-
74-year-old smoking male who denies significant past medical history, however, clearly has underlying advanced COPD radiographically presented with shortness of breath, anorexia, and unintentional weight loss-pulmonary consulted for shortness of
breath 02/11/2025.
Acute COPD exacerbation, baseline severe COPD
Community-acquired pneumonia
Hematuria
Chronic bladder outlet obstruction/chronic bilateral hydroureteronephrosis
Prostate gland 2.7 cm irregular shaped hyperenhancement suggestive of prostate cancer
Severe protein calorie malnutrition
Hypertension
Mild leukocytosis
Mild normocytic anemia-hemoglobin 11.8
Mild hyperglycemia
Conditions present prior to admission:
Cigarette smoker.
Denies previous history of CAD, COPD, lung disease, renal, gastrointestinal or neurologic disease
Plan
Patient undoubtedly has advanced COPD with shortness of breath that has been progressive now presenting with acute exacerbation in addition to multiple other medical issues
Supplemental oxygen as needed
Assess discharge supplemental oxygen needs
Continue DuoNeb scheduled 4 times a day, and budesonide twice a day
Continue prednisone p.o.
02/14, SpO2 on room air was 86-89%, placed back on 1 ltr supplemental O2. Likely will need supplemental O2 at discharge.
At discharge, will need triple therapy with LAMA/LABA/ICS, Trelegy 100 will be a good option
Spirometry suggestive of severe obstruction with possible restriction without bronchodilator response. Needs lung volume and diffusion capacity as outpatient
VBG suggestive of mild chronically compensated hypercapnia. Also noted to have elevated bicarb level on BMP consistent with some degree of chronic retention.
Needs outpatient follow-up with pulmonary clinic, will arrange.
Continue empiric antibiotic with ceftriaxone and azithromycin
With history of smoking, will need outpatient low-dose CT scan for lung cancer screening
Urology evaluation for hematuria and chronic bladder outlet obstruction with suspected prostate cancer
Monitor hemoglobin
Transfuse if needed
Monitor blood sugar
Insulin supplementation as needed
Nutrition evaluation with severe protein calorie malnutrition
Smoking cessation counseling ongoing
Nicotine patch as needed
Outpatient pulmonary evaluation-PFTs, smoking cessation counseling, yearly low-dose lung cancer screening CT, etc.
Diagnostic data:
Chest x-ray 02/10/2025-severe bilateral lung hyperinflation, moderate asymmetrical opacifications likely related to right lower lobe pneumonia
CT chest/abdomen and pelvis 02/10/2025-no evidence for pulm embolism, very severe bilateral lung hyperinflation, mild bronchial wall thickening, endobronchial secretions, no bronchiectasis, severe centrilobular emphysema, airspace disease basilar
segment right lower lobe, severely distended urinary bladder suggesting chronic outlet obstruction, many calculi in the urinary bladder lumen, 2.7 cm irregular shaped hyperenhancement in the prostate gland suggesting prostate carcinoma, moderate
chronic bilateral hydro nephrosis
Subjective Data
-
Date of Service:
Date of Service: February 14, 2025
Subjective:
Patient comfortably sitting in bed in no acute distress.
Review of Systems
Genitourinary: Other (All 14 systems reviewed and negative except as stated above in the history of present illness.)
Objective Data
Data Reviewed
Vital Signs / I&O / Oxygen:
Vital Signs
Temp Pulse Resp BP Pulse Ox
97.5 F 89 18 151/77 91
02/14/25 07:40 02/14/25 11:15 02/14/25 11:15 02/14/25 07:40 02/14/25 11:15
Intake and Output
02/13/25 02/14/25 02/15/25
06:59 06:59 06:59
Intake Total 1210 / 1210 480 / 480
Output Total 1350 / 1350 2100 / 2100
Balance -140 / -140 -1620 / -1620
SaO2 91
Nasal Cannula flow liters per 1
minute
Physical Exam
General: Comfortable
HEENT: Normocephalic
Cardiovascular: S1-S2
Respiratory: Wheeze (Resolved), Non-Labored Respirations and Other (AP diameter increased, prolonged expiration)
GI: Soft and Non Distended
Neurology: Awake and Alert
Skin: Warm
Labs/Micro/Reports
Lab Data
02/14/25 07:49
02/14/25 07:49
Microbiology
02/11/25 11:33 Blood/Venous Blood Culture - Preliminary
No Growth in 48 hours- Final report to follow
02/11/25 18:11 Urine Legionella Urinary Antigen - Final
Negative for Legionella pneumophila Serogroup 1 antigen.
A negative result does not rule out the possiblity of
Legionella infection due to other serogroups or species of
Legionella. Clinical correlation is recommended.
02/10/25 11:29 Urine Urine Culture - Final
--- NOTE | 2025-02-14 11:50 | CM ---
Chart reviewed. [facility] for [facility], no determination from [facility]. CM left message w/ [facility]/admissions to review
Per hospitalist, patient would be stable to d/c tomorrow if an accepting facility is located
Spoke w/ patient bedside, provided update. Patient doesn't have a preference for either facility, both are rated generously
Asked hospitalist for OT order for auth
Per pulmonology, patient will need O2 assessment prior to d/c
Plan: SNF, will watch for O2 needs
--- NOTE | 2025-02-14 12:23 | W.PN.HOSP.TC ---
Today's Communication/Plan
-
Continue bronchodilators
Finish course of antibiotic
disposition to SNF
Assessment / Plan
Assessment / Plan
Physical Exam
General: No Apparent Distress. Cachexia noted, conversant
HEENT: Normocephalic, Moist mucous membranes and Atraumatic
Respiratory: Mild expiratory wheezing, able to speak complete sentences, not tachypneic, on oxygen 2L NC
Cardiac: S1/S2
GI: Soft, Non Tender, Non Distended and Normal Bowel Sounds.
Rectal: no bleeding
Musculoskeletal: No Clubbing, No Cyanosis and No Edema
Skin: No Rash
Neuro: Nonfocal/grossly intact
Psych: calm
A/P:
# Acute COPD exacerbation
# Acute hypoxic respiratory failure with distress, requiring oxygen supplementation
# Chronic dyspnea at home
CT showed severe bilateral upper lobe centrilobular emphysema/moderate right lower lobe pneumonia/mild left lower lobe pneumonia
- Chest x-ray shows severe bilateral lung hyperinflation
- DuoNeb every 6 hours. Budenoside BID. Plan to transition patient to [facility] as outpatient.
- Status post IV steroids. Now on prednisone 40 mg.
- Remains on 2L oxygen. Wean o2 as tolerated goal o2 sats >88%.
-Pulm following
# Mild right lower lobe pneumonia
-Leukocytosis on admisison
-Afebrile
-Ceftriaxone/azithromycin-complete finite course of 5 days
# Hematuria secondary to possible prostate malignancy
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
-Urinalysis not particularly suggestive of infection but urine culture came back negative . Pt already on Abx for lung disease
- CT abdomen pelvis shows severely distended urinary bladder, marked trabeculation of the urinary bladder wall suggesting chronic outlet obstruction, many calculi in the urinary bladder lumen, 2.7 cm irregular shaped hyperenhancement in the prostate
gland suggesting prostate adenocarcinoma obstructing the urinary bladder, moderate chronic bilateral hydroureteronephrosis,
- Vieyra catheter placed. Urology recommends DC on vieyra. Patient refusing to go home on vieyra-defer to urology.
- PSA normal.
- Urology consulted-Plan for outpatient Cystolitholapaxy and TURP and also recommending finasteride 5mg
# Tobacco use/smoking
- Nicotine patch
# Severe protein caloric malnutrition. BMI 15. Suspect secondary to ongoing COPD
Significant muscle wasting
# Suspect untreated primary hypertension. Blood pressure seems to fluctuate between high and normal.
Full code
DVT prophylaxis�lovenox started
PT recs SNF. CM aware. Ongoing disposition planning.
d/w with pulmonary
Anticipated Discharge: Within 24 hours
Subjective/Interval History
-
Date of Service: February 14, 2025
remains on 2L oxygen
intermittent cough
worked with PT yesterday -felt tired and sob
O2 downtrended
Objective Data
-
Labs:
Laboratory Results
02/14/25
07:49
WBC 10.2
Hgb 12.4 L
Hct 37.1 L
Plt Count 317
Sodium 133 L
Potassium 4.6
Chloride 96 L
Carbon Dioxide 36 H
BUN 19
Creatinine 0.6 L
Glucose 76
Calcium 9.2
Vital Signs:
Vital Signs
Temp Pulse Resp BP Pulse Ox
97.5 F 89 18 151/77 91
02/14/25 07:40 02/14/25 11:15 02/14/25 11:15 02/14/25 07:40 02/14/25 11:15
I&O
02/13/25 02/14/25 02/15/25
06:59 06:59 06:59
Intake Total 1210 / 1210 480 / 480
Output Total 1350 / 1350 2100 / 2100
Balance -140 / -140 -1620 / -1620
[2025-02-14] MEDS: STERILE WATER FOR INJECTION 10 ML IV (13:57)
[2025-02-14] MEDS: ROCEPHIN 1000 MG IV (13:57)
[2025-02-14] MEDS: FLUSH (NSS) 1 FLUSH IV (13:57)
[2025-02-14 15:34] VITALS: BP 121/69; BP 126/64; PULSE 84; PULSE 87; O2SAT 93
[2025-02-14 15:35] VITALS: BP 130/56
--- NOTE | 2025-02-14 16:41 | PTCARENOTE ---
Pt AAO x3, anxious at times; very talkative. YI well, states he gets 'SOB' with OOB activity. VSS. Maintained on nc 1 lpm- pulse ox 92%, pt c/o occ 'SOB' but no resp difficulty noted. Reports productive cough- small amts light yellow mucus
after resp treatments. Abd soft, héctor PO well, pt reports no BM since Wednesday; refuses offer to obtain prn bowel med; stated 'That's just how I am. I haven't eaten much until I came in here'. Iniguez P/I clear yellow urine. Resting in bed at
present. Will continue to monitor.
[2025-02-14] MEDS: LOVENOX 40 MG SC (17:24)
[2025-02-14 23:44] VITALS: BP 117/57
[2025-02-15 06:00] VITALS: BMI 15.6
[2025-02-15 07:17] VITALS: BP 141/64
[2025-02-15] MEDS: PULMICORT 0.5 MG INH ×2 (07:49→20:04)
[2025-02-15] MEDS: DUONEB 3 ML INH ×4 (07:49→20:05)
[2025-02-15 08:24] LABS: Hematocrit 38.0 % (39.0-52.0); Hemoglobin 13.1 g/dL (13.0-18.0); Mean Corp Hgb Conc. 34.5 g/dL (33.0-37.0); Mean Corpuscular Volume 90.7 fL (80.0-94.0); Nucleated Red Blood Cells % 0 % (-); Platelet Count 364 10^3/uL (130-400); Red Cell Dist. Width 11.9 % (11.5-14.5)
[2025-02-15] MEDS: PROSCAR 5 MG PO (08:42)
[2025-02-15] MEDS: ZITHROMAX 250 MG PO (08:42)
[2025-02-15] MEDS: DELTASONE 40 MG PO (08:42)
[2025-02-15 09:07] LABS: Blood Urea Nitrogen 19 mg/dl (9-20); Calcium 8.8 mg/dl (8.4-10.2); Carbon Dioxide 38 mmol/L (22-30); Chloride 93 mmol/L (98-107); Estimated Creatinine Clearance 70 ml/min; Glucose 89 mg/dl (70-99); Potassium 4.5 mmol/L (3.5-5.1); Sodium 132 mmol/L (135-145); eGFR > 60.00
--- NOTE | 2025-02-15 11:42 | CM ---
Addendum entered by Virginia Kennedy RN 02/15/25 14:23:
[facility] can accept patient, this is patient's first choice. Waiting on updated PT notes to start auth.
[facility] NPI# [id number]
Dr. Aponte NPI# [id number]
Original Note:
Reviewed the chart notes and spoke with the patient at the bedside. IMM reviewed. Patient will need to be seen by PT today for an auth to be started for SNF. CM continues to be available to patient/family and is monitoring medical plan for needs
at discharge.
Plan: Discharge to SNF/rehab once bed secured and auth obtained.
--- NOTE | 2025-02-15 11:56 | W.PN.HOSP.TC ---
Addendum entered and electronically signed by Jaime Puente MD 02/15/25 15:39:
Updated spouse Chanel over the phone in details. Explained hospitalization so far. Explained patient will need to be discharged on oxygenation most likely and also with Vieyra catheter. Patient will need close follow-up with urology for
urological procedure. Spouse to discuss with patient about going to rehab.
Original Note:
Today's Communication/Plan
-
Continue with bronchodilators
Decrease steroids
Complete course of antibiotic
SNF versus home-await patient decision.
Assessment / Plan
Assessment / Plan
Physical Exam
General: No Apparent Distress. Cachexia noted, conversant
HEENT: Normocephalic, Moist mucous membranes and Atraumatic
Respiratory: Mild expiratory wheezing, able to speak complete sentences, not tachypneic, on oxygen 1L NC
Cardiac: S1/S2
GI: Soft, Non Tender, Non Distended and Normal Bowel Sounds.
Rectal: no bleeding
Musculoskeletal: No Clubbing, No Cyanosis and No Edema
Skin: No Rash
Neuro: Nonfocal/grossly intact
Psych: calm
A/P:
# Acute COPD exacerbation
# Acute hypoxic respiratory failure with distress, requiring oxygen supplementation
# Chronic dyspnea at home
CT showed severe bilateral upper lobe centrilobular emphysema/moderate right lower lobe pneumonia/mild left lower lobe pneumonia
- Chest x-ray shows severe bilateral lung hyperinflation
- DuoNeb every 6 hours. Budenoside BID. Plan to transition patient to [facility] as outpatient.
- Status post IV steroids. Decrease steroids.
- Remains on 1L oxygen. Wean o2 as tolerated goal o2 sats >88%.
-Pulm following
# Mild right lower lobe pneumonia
-Leukocytosis on admisison
-Afebrile
-Ceftriaxone/azithromycin-complete finite course of 5 days
# Hematuria secondary to possible prostate malignancy
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
-Urinalysis not particularly suggestive of infection but urine culture came back negative . Pt already on Abx for lung disease
- CT abdomen pelvis shows severely distended urinary bladder, marked trabeculation of the urinary bladder wall suggesting chronic outlet obstruction, many calculi in the urinary bladder lumen, 2.7 cm irregular shaped hyperenhancement in the prostate
gland suggesting prostate adenocarcinoma obstructing the urinary bladder, moderate chronic bilateral hydroureteronephrosis,
- Vieyra catheter placed. Urology recommends DC on vieyra. Patient refusing to go home on vieyra-defer to urology.
- PSA normal.
- Urology consulted-Plan for outpatient Cystolitholapaxy and TURP and also recommending finasteride 5mg
# Tobacco use/smoking
- Nicotine patch
# Severe protein caloric malnutrition. BMI 15. Suspect secondary to ongoing COPD
Significant muscle wasting
Tremors resting likely secondary to steroids
Decrease dose#
# Suspect untreated primary hypertension. Blood pressure seems to fluctuate between high and normal.
Full code
DVT prophylaxis�lovenox started
PT recs SNF. CM aware. Patient contemplating about going to rehab versus going home.
Anticipated Discharge: 24 - 48 hours
Subjective/Interval History
-
Date of Service: February 15, 2025
Remains on 1 L of oxygen
Patient states he is feeling tired and fatigued and short of breath with exertion
Remains with intermittent cough.
Objective Data
-
Labs:
Laboratory Results
02/15/25
07:46
WBC 11.1 H
Hgb 13.1
Hct 38.0 L
Plt Count 364
Sodium 132 L
Potassium 4.5
Chloride 93 L
Carbon Dioxide 38 H
BUN 19
Creatinine 0.7
Glucose 89
Calcium 8.8
Vital Signs:
Vital Signs
Temp Pulse Resp BP Pulse Ox
98.1 F 73 16 141/64 89
02/15/25 07:17 02/15/25 08:28 02/15/25 11:07 02/15/25 07:17 02/15/25 11:07
I&O
02/14/25 02/15/25 02/16/25
06:59 06:59 06:59
Intake Total 480 / 480 1020 / 1020
Output Total 2099 / 2099 875 / 875
Balance -1620 / -1620 1020 / 1020 -875 / -875
[2025-02-15] MEDS: ROCEPHIN 1000 MG IV (13:39)
[2025-02-15] MEDS: STERILE WATER FOR INJECTION 10 ML IV (13:40)
--- NOTE | 2025-02-15 14:07 | PN.CDI ---
CDI
- -
CDI:
Physician Documentation Request
Admit Date: 02/10/25 14:36
Dear Doctor Cindi,
Please review the following and provide your response in the progress notes.
Clinical Indicators:
Pt admitted with COPD exacerbation SPCM/Pneumonia
Sodium levels are as below /Pt did get IVFS
02/14/25 02/15/25
07:49 07:46
Sodium 133 L 132 L
Based on the above, could you clarify in the progress notes, the appropriate diagnosis, if significant, that supports the above abnormalities and additional evaluation, monitoring and/or treatment rendered:
Hyponatremia
Abnormal lab value only
Other ( please specify )
Use of terms such as suspected, likely, concern for, or probable (associated with a specific diagnosis that is being evaluated, monitored, or treated as if it exists) are acceptable and can be coded in the inpatient setting, when documented at the
time of discharge.
Thank you,
Natalee Gilbert RN
CDI Specialist
[facility]
Please use your independent medical judgment in providing your response.
[2025-02-15 15:57] VITALS: BP 125/57
[2025-02-15 16:55] VITALS: BP 132/77; BP 141/71; PULSE 81; O2SAT 93
[2025-02-15] MEDS: LOVENOX 40 MG SC (17:51)
[2025-02-15 23:27] VITALS: BP 128/60
[2025-02-16 06:00] VITALS: BMI 15.4
[2025-02-16] MEDS: DUONEB 3 ML INH ×3 (07:12→15:20)
[2025-02-16] MEDS: PULMICORT 0.5 MG INH (07:12)
[2025-02-16 07:30] VITALS: BP 141/70
[2025-02-16] MEDS: ZITHROMAX 250 MG PO (07:49)
[2025-02-16] MEDS: DELTASONE 30 MG PO (07:49)
[2025-02-16] MEDS: PROSCAR 5 MG PO (07:49)
[2025-02-16 08:53] LABS: Hematocrit 37.2 % (39.0-52.0); Hemoglobin 12.7 g/dL (13.0-18.0); Mean Corp Hgb Conc. 34.1 g/dL (33.0-37.0); Mean Corpuscular Volume 88.6 fL (80.0-94.0); Nucleated Red Blood Cells % 0 % (-); Platelet Count 330 10^3/uL (130-400); Red Cell Dist. Width 12.0 % (11.5-14.5)
[2025-02-16 09:20] LABS: Blood Urea Nitrogen 19 mg/dl (9-20); Calcium 9.1 mg/dl (8.4-10.2); Carbon Dioxide 36 mmol/L (22-30); Chloride 94 mmol/L (98-107); Estimated Creatinine Clearance 81 ml/min; Glucose 102 mg/dl (70-99); Potassium 4.6 mmol/L (3.5-5.1); Sodium 131 mmol/L (135-145); eGFR > 60.00
--- NOTE | 2025-02-16 09:48 | CM ---
Addendum entered by Genaro Aguilar 02/16/25 15:42:
Received call from [facility]. Auth approved beginning today, 02/16, next review date is 02/20
Auth approval : [id number]
Updated [facility] admissions
Updated hospitalist
Updated patient bedside
Original Note:
[facility] accepted patient, has a bed avail-able today
CM called [facility] ([phone]) to initiate auth. Spoke w/ Corina who requested clinicals to be faxed for review
CM faxed clinicals to [phone]. Updated OT eval needed, TT OT to see this morning
Pending ref # [id number]
[facility]
Report: [phone]

Plan: De SNF once auth is received
[2025-02-16 11:07] VITALS: BP 119/57; PULSE 72; O2SAT 90
--- NOTE | 2025-02-16 12:19 | W.PN.HOSP.TC ---
Today's Communication/Plan
-
Await insurance authorization for rehab
Continue with prednisone taper regimen
Continue with bronchodilators/nebulized
Complete 5-day course of antibiotics
Assessment / Plan
Assessment / Plan
Physical Exam
General: No Apparent Distress. Cachexia noted, conversant
HEENT: Normocephalic, Moist mucous membranes and Atraumatic
Respiratory: Clear to auscultation,, able to speak complete sentences, not tachypneic, on oxygen 1L NC
Cardiac: S1/S2
GI: Soft, Non Tender, Non Distended and Normal Bowel Sounds.
Rectal: no bleeding
Musculoskeletal: No Clubbing, No Cyanosis and No Edema
Skin: No Rash
Neuro: Nonfocal/grossly intact
Psych: calm
A/P:
# Acute COPD exacerbation
# Acute hypoxic respiratory failure with distress, requiring oxygen supplementation
# Chronic dyspnea at home
CT showed severe bilateral upper lobe centrilobular emphysema/moderate right lower lobe pneumonia/mild left lower lobe pneumonia
- Chest x-ray shows severe bilateral lung hyperinflation
- DuoNeb every 6 hours. Budenoside BID. Plan to transition patient to [facility] as outpatient.
- Status post IV steroids. Now on p.o. prednisone taper regimen.
- Remains on 1L oxygen. Wean o2 as tolerated goal o2 sats >88%.
-Pulm following
# Mild right lower lobe pneumonia
-Leukocytosis on admisison
-Afebrile
-Ceftriaxone/azithromycin-complete finite course of 5 days
# Hematuria secondary to possible prostate malignancy
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
-Urinalysis not particularly suggestive of infection but urine culture came back negative . Pt already on Abx for lung disease
- CT abdomen pelvis shows severely distended urinary bladder, marked trabeculation of the urinary bladder wall suggesting chronic outlet obstruction, many calculi in the urinary bladder lumen, 2.7 cm irregular shaped hyperenhancement in the prostate
gland suggesting prostate adenocarcinoma obstructing the urinary bladder, moderate chronic bilateral hydroureteronephrosis,
- Vieyra catheter placed. Urology recommends DC on vieyra. Patient refusing to go home on vieyra-defer to urology.
- PSA normal.
- Urology consulted-Plan for outpatient Cystolitholapaxy and TURP and also recommending finasteride 5mg
# Tobacco use/smoking
- Nicotine patch
# Severe protein caloric malnutrition. BMI 15. Suspect secondary to ongoing COPD
Significant muscle wasting
Tremors resting likely secondary to steroids
Resolved with reduction of steroids
# Suspect untreated primary hypertension. Blood pressure seems to fluctuate between high and normal. Continue to monitor for now. Overnight 128/60. Not on meds at home.
#Mild hyponatremia
Full code
DVT prophylaxis�lovenox started
PT recs SNF. CM aware. Patient agreeable to go to rehab on oxygenation and Vieyra catheter.
Discussed with patient spouse over the phone in details on 02/15/2025
Anticipated Discharge: Today
Subjective/Interval History
-
Date of Service: February 16, 2025
States she is agreeable and amenable to rehab planning now.
States he was able to ambulate yesterday and get out of bed to chair
Remains on 1 L of oxygenation
Objective Data
-
Labs:
Laboratory Results
02/16/25
08:31
WBC 11.6 H
Hgb 12.7 L
Hct 37.2 L
Plt Count 330
Sodium 131 L
Potassium 4.6
Chloride 94 L
Carbon Dioxide 36 H
BUN 19
Creatinine 0.6 L
Glucose 102 H
Calcium 9.1
Vital Signs:
Vital Signs
Temp Pulse Resp BP Pulse Ox
98.2 F 74 16 141/70 90
02/16/25 07:30 02/16/25 11:22 02/16/25 11:22 02/16/25 07:30 02/16/25 11:22
I&O
02/15/25 02/16/25 02/17/25
06:59 06:59 06:59
Intake Total 1020 / 1020 1260 / 1260
Output Total 3150 / 3150
Balance 1020 / 1020 -1890 / -1890
--- NOTE | 2025-02-16 15:24 | W.DCSUMMARY ---
Discharge Summary
Discharge Data
Date of Admission: 02/10/25
Date of Discharge: 02/16/25
-
Pending Results: No
Hospital Course
74-year-old male past medical history of tobacco abuse who is presenting with complaints of shortness of breath. Patient was also complaining of hematuria. CT showed severe bilateral upper lobe centrilobular emphysema/moderate right lower lobe
pneumonia/mild left lower lobe pneumonia. CT abdomen pelvis shows severely distended urinary bladder, marked trabeculation of the urinary bladder wall suggesting chronic outlet obstruction, many calculi in the urinary bladder lumen, 2.7 cm irregular
shaped hyperenhancement in the prostate gland suggesting prostate adenocarcinoma obstructing the urinary bladder, moderate chronic bilateral hydroureteronephrosis. Iniguez catheter was placed. Patient was eval by pulmonary and urology .Urology
consulted-Plan for outpatient Cystolitholapaxy and TURP and also recommending finasteride 5mg. PSA was normal. patient was started on IV steroids. Patient completed course of antibiotics with ceftriaxone and azithromycin. IV steroids with
significant improvement. Patient was also started on bronchodilators with DuoNebs. Budesonide was also added. Leading to improvement in symptoms. Upon discharge patient will be transition to Trelegy. Furthermore patient oxygenation status also
improved. Patient with improvement in pulmonary examination and oxygen status improved to 1 L. Patient was eval by physical and Occupational Therapy. Patient was agreeable and amenable to going to rehab. Patient to be discharged on prednisone
taper regimen. Also recommended strict outpatient pulmonary follow-up.
Discharge Plan
-
Patient Disposition: Residential/SNF
Discharge Diagnosis/Procedures: Acute COPD exacerbation
Acute hypoxic respiratory failure
Mild right lower lobe pneumonia
Chronic bladder outlet obstruction causing bladder stones, hematuria, bilateral hydroureteronephrosis status post Iniguez catheter placement
Condition: Fair
Diet: Regular
Activity: As tolerated
Driving Restrictions: As prior to admission
Referrals:
Jose Angel Gray MD [Active, Urology]
Referral Note: call to schedule ' pre-op' appt during next 2 weeks
NONE,* [Family Provider, Internal Medicine] - in less than 1 week
John Palomo MD [Active, Pulmonary Medicine] - in one to two weeks
Referral Note: Eventual full PFT. Call to make appointment.
Prescriptions:
New
finasteride 5 mg tablet
5 mg PO DAILY Qty: 90 3RF
prednisone 10 mg Tablet
See Rx Instructions .ROUTE .COMPLEX Qty: 18 0RF
Rx Instructions:
Take By Mouth:
30 mg daily x3 days,
20 mg daily x3 days, 10 mg daily x3 days.
Trelegy Ellipta 100-62.5-25 mcg blister with device
1 inh inhalation DAILY 30 Days Qty: 60 0RF
Continued
multivit with min-folic acid [Multivitamin Gummies] 200 mcg Tablet,Chewable
2 tab PO DAILY
Discharge Orders:
Discharge Patient (As Directed); Ordered 02/16/25
Ordered By: Jaime Puente
Discharge Date and Time
Print Language: ANDORRAN
[2025-02-16 15:35] VITALS: BP 119/57
[2025-02-16] MEDS: LOVENOX 40 MG SC (17:39)
--- NOTE | 2025-02-16 17:49 | CM ---
Called to come see patient because he does not want to leave this evening.
Transport is scheduled for 7 pm.
CM again explained the IMM to the patient and since he could not find the second page was issued another IMM.
Patient understands if he intends to appeal he needs to call in by IVON gray.
Patient will let nursing know if he decides to appeal or be d/c.
Patient is aware bed may not be available at [facility] when he is ready for d/c, but if he does stay the night CM will reach out to [facility] for bed availability in the am.
Patient will discuss with his , she is on her way.
Plan: [facility], possible appeal.
== END 2025-02-16 19:28 | DRG 193 ==
LOC: 4 EAST ACU 14:36
PROVIDERS: Internal Medicine; ADMITTING PHYSICIAN Hospitalist; ATTENDING PHYSICIAN Hospitalist; CONSULT PHYSICIAN Internal Medicine Critical Care Medicine; CONSULT PHYSICIAN Specialist; EMERGENCY PHYSICIAN Emergency Medicine
PROC: 5A0935Z Assistance with Respiratory Ventilation, Less than 24 Consecutive Hours (ICD-10-PCS; 2025-02-12)
DX: J18.9 Pneumonia, unspecified organism (principal); E43 Unspecified severe protein-calorie malnutrition; J96.01 Acute respiratory failure with hypoxia; J44.1 Chronic obstructive pulmonary disease with (acute) exacerbation; N13.30 Unspecified hydronephrosis; Z68.1 Body mass index [BMI] 19.9 or less, adult; E87.1 Hypo-osmolality and hyponatremia; J44.0 Chronic obstructive pulmonary disease with (acute) lower respiratory infection; F17.210 Nicotine dependence, cigarettes, uncomplicated; I10 Essential (primary) hypertension; D63.0 Anemia in neoplastic disease; C61 Malignant neoplasm of prostate; R31.9 Hematuria, unspecified; N32.0 Bladder-neck obstruction; J43.2 Centrilobular emphysema; N21.0 Calculus in bladder; Z11.52 Encounter for screening for COVID-19; Z79.51 Long term (current) use of inhaled steroids
CPT/HCPCS: 71046; 71275; 74177; 80048; 80053; 81003; 81015; 82805; 83880; 84153; 84484; 85025; 85027; 85610; 85730; 87040; 87086; 87449; 87502; 87811; 93005; 94060; 94640; 96361; 97116; 97163; 97167; 97530; 97535; 99285; Q9967

== ENCOUNTER → 2025-02-21 11:39 | Outpatient (REF) | payer OTHER, MEDICARE, SELFPAY ==
[2025-02-21 12:38] LABS: Hematocrit 34.5 % (39.0-52.0); Hemoglobin 11.4 g/dL (13.0-18.0); Mean Corp Hgb Conc. 33.0 g/dL (33.0-37.0); Mean Corpuscular Volume 91.8 fL (80.0-94.0); Platelet Count 491 10^3/uL (130-400); Red Cell Dist. Width 12.7 % (11.5-14.5)
[2025-02-21 13:54] LABS: ALT (SGPT) 27 U/L (0-50); AST (SGOT) 23 U/L (17-59); Albumin 2.8 g/dl (3.5-5.0); Alkaline Phosphatase 74 U/L (38-126); Blood Urea Nitrogen 14 mg/dl (9-20); Calcium 8.2 mg/dl (8.4-10.2); Carbon Dioxide 36 mmol/L (22-30); Chloride 98 mmol/L (98-107); Glucose 73 mg/dl (70-99); Magnesium 2.0 mg/dl (1.6-2.3); Potassium 4.3 mmol/L (3.5-5.1); Sodium 134 mmol/L (135-145); Total Protein 5.1 g/dl (6.3-8.2); eGFR > 60.00
== END ==
LOC: OLABWHC 11:39
PROVIDERS: ATTENDING PHYSICIAN Family Medicine
DX: I10 Essential (primary) hypertension (principal); J44.1 Chronic obstructive pulmonary disease with (acute) exacerbation; E87.1 Hypo-osmolality and hyponatremia
CPT/HCPCS: 36415; 80053; 83735; 85027

== ENCOUNTER 2025-03-21 06:42 | Day surgery (SDC) | payer MEDICARE, SELFPAY ==
[2025-03-21] VITALS (11 sets, daily range): BP systolic 135–177; BP diastolic 60–92; BMI 17.2
[2025-03-21] MEDS: NORMOSOL-R/PLASMALYTE-A 1000 IV (10:21)
[2025-03-21] MEDS: COLACE PO (17:45)
[2025-03-21] MEDS: TYLENOL 650 MG PO (20:56)
[2025-03-22] MEDS: TYLENOL 650 MG PO ×2 (02:40→10:41)
[2025-03-22] MEDS: NON-FORMULARY ITEM 1 UNIT INH (06:17)
[2025-03-22 07:41] VITALS: BP 128/56
--- NOTE | 2025-03-22 08:24 | W.PN.URO.CBU ---
Today's Communication / Plan
-
discharge
Assessment / Plan
-
BPH with severe/chronic Urinary Retention; Bladder Calculi s/p Robotic Partial Prostatectomy and Litholapaxy
stable
Diagnosis
-
Date of Service: March 22, 2025
-
Patient Diagnosis: BPH with severe/chronic Urinary Retention; Bladder Calculi s/p Robotic Partial Prostatectomy and Litholapaxy
Post Op Day:
Subjective
-
'I feel pretty good.'
Objective
-
Vital Signs
Temp Pulse Resp BP Pulse Ox
98.6 F 71 16 128/56 94
03/22/25 07:41 03/22/25 07:41 03/22/25 07:41 03/22/25 07:41 03/22/25 07:41
Intake and Output
03/21/25 03/22/25 03/23/25
06:59 06:59 06:59
Intake Total 1540 / 1540
Output Total -125 / -125 1275 / 1275
Balance 1665 / 1665 -1275 / -1275
Intake:
Oral fluids 1440 / 1440
IV fluids (Total) 100 / 100
Normosol 100 / 100
Output:
True Urine Output from CBI -125 / -125 1275 / 1275
Physical Exam
-
General - well developed, well nourished, no acute distress
Chest - clear bilaterally
Abdomen - soft, no distention
SPT -- healthy with CBI in
Genitalia - Iniguez with clear outflow
Skin - warm & dry with no rash
Neuro - AOx3, no motor deficits
Extremities - no clubbing, no cyanosis, no edema
Dressings - clean, dry, intact
[2025-03-22] MEDS: COLACE 100 MG PO ×2 (08:50→10:45)
[2025-03-22] MEDS: PROSCAR 5 MG PO (08:50)
--- NOTE | 2025-03-22 10:00 | CM ---
Patient seen at bedside
IA completed
Patient reports he had a vieyra since February and is independent with care & declines VN
patient states follow-up appt with urology Wednesday
spoke with who states he is independent with vieyra-declined vn
Patient lives in 2 story home with , 2 german, first floor bedroom/bathroom
PLOF: Independent with cane, Independent with ADL's
DME: Cane, walker
Denies VN in past/Ed in past
PCP: does not have one - information given to patient for residency clinic, patient also stated he will call his ins co. for recommendation of PCP
PHARMACY: [facility] [place]
PLAN: Home, no needs
daughter to transport
[2025-03-22 12:06] VITALS: BP 105/51
== END 2025-03-22 13:02 | disposition home or self-care (01) ==
LOC: SDS 06:42
PROVIDERS: ATTENDING PHYSICIAN Specialist
DX: N40.1 Benign prostatic hyperplasia with lower urinary tract symptoms (principal); R33.8 Other retention of urine; N21.0 Calculus in bladder
CPT/HCPCS: 55867; 88300; 88307

== ENCOUNTER → 2025-04-18 10:19 | Outpatient (REF) | payer MEDICARE, SELFPAY | LOC: HWRAD 10:19 | PROVIDERS: ATTENDING PHYSICIAN Internal Medicine Critical Care Medicine; FAMILY PHYSICIAN Family Medicine | DX: J44.9 Chronic obstructive pulmonary disease, unspecified (principal) | CPT/HCPCS: 71046 ==